=== PATIENT | female | born 1960 ===

== ENCOUNTER → 2017-10-12 | Outpatient (CLI) | payer OTHER | END | disposition home or self-care (01) | LOC: SONOGRAMA 10:44 | DX: K76.0 Fatty (change of) liver, not elsewhere classified (principal) ==

== ENCOUNTER 2018-01-31 10:18 | Outpatient (CLI) | payer OTHER | END 2018-01-31 10:25 | disposition home or self-care (01) | LOC: RAD 10:18 | DX: R91.8 Other nonspecific abnormal finding of lung field (principal) ==

== ENCOUNTER → 2021-04-28 | Outpatient (CLI) | payer OTHER | END | disposition home or self-care (01) | LOC: RAD 11:18 | DX: R07.89 Other chest pain (principal); R91.8 Other nonspecific abnormal finding of lung field ==

== ENCOUNTER 2021-12-09 14:44 | Outpatient (CLI) | payer OTHER | END 2021-12-09 14:46 | disposition home or self-care (01) | LOC: RAD 14:44 | PROVIDERS: ATTEND Physical Medicine & Rehabilitation | DX: M25.561 Pain in right knee (principal) ==

== ENCOUNTER 2022-08-30 09:11 | Outpatient (CLI) | payer OTHER | END 2022-08-30 09:33 | disposition home or self-care (01) | LOC: SONOGRAMA 09:11 | PROVIDERS: ATTEND Internal Medicine Endocrinology, Diabetes & Metabolism | DX: E04.1 Nontoxic single thyroid nodule (principal) ==

== ENCOUNTER 2023-08-03 12:25 | Outpatient (CLI) | payer OTHER | END 2023-08-03 12:26 | disposition home or self-care (01) | LOC: SONOGRAMA 12:25 | PROVIDERS: ATTEND Internal Medicine Endocrinology, Diabetes & Metabolism | DX: E04.1 Nontoxic single thyroid nodule (principal) ==

== ENCOUNTER 2024-05-08 09:09 | Outpatient (CLI) | payer OTHER | END 2024-05-08 09:20 | disposition home or self-care (01) | LOC: SONOGRAMA 09:09 | PROVIDERS: ATTEND Psychiatry & Neurology Neurology | DX: K76.0 Fatty (change of) liver, not elsewhere classified (principal) ==

== ENCOUNTER 2024-06-04 12:39 | Outpatient (CLI) | payer OTHER ==
[2024-06-04 13:17] LABS: HEMATOCRIT 41.4 % (36.0-45.00); HEMOGLOBIN 14.7 g/dL (12.0-15.00); MEAN CELL VOLUME 95.8 fL (80.00-100.00); MEAN CORPUSCULAR HEMOGLOBIN 34.1 pg (27.00-32.0); MEAN CORPUSCULAR HGB CONC 35.6 g/dl (32.0-36.0); PLATELET COUNT 228 K/uL (150-450); RED BLOOD COUNT 4.33 M/uL (4.00-6.00); RED CELL DISTRIBUTION WIDTH 13.1 % (11.5-14.5)
[2024-06-04 13:18] LABS: PH,URINE 6.5 (5.0-8.0); URINE APPEARANCE Clear; URINE BILIRRUBIN Negative (NEGATIVE); URINE BLOOD Large; URINE COLOR Yellow; URINE GLUCOSE Negative (NEGATIVE); URINE KETONE 15 (NEGATIVE); URINE LEUKOCYTE Trace; URINE NITRATE Negative; URINE PROTEIN Negative (NEGATIVE)
[2024-06-04 13:21] LABS: URINE BACTERIA 976.4 uL (0.0-1933); URINE EPITHELIAL CELLS 59.3 uL (0.0-38.8); URINE RBC 53.8 uL (0.0-20.8); URINE WBC 13.4 uL (0.0-23.2)
[2024-06-04 13:31] LABS: URINE CAST 0.45 uL (0.0-1.40)
[2024-06-04 14:01] LABS: BILIRUBIN TOTAL 1.13 mg/dL (0.3-1.2); CREATININE SERUM 0.77 mg/dL (0.55-1.02); GFR 75.71; GLOBULINA 4.3 G/DL (2.4-3.5); POTASSIUM 4.25 mEq/L (3.5-5.1); T4 TOTAL 6.77 UG/DL (4.8-13.9); TOTAL PROTEIN 8.3 gm/dL (6.4-8.2); TSH 0.781 uIU/mL (0.358-3.74)
== END 2024-06-04 12:40 | disposition home or self-care (01) ==
LOC: RAD 12:39
DX: N39.0 Urinary tract infection, site not specified (principal); J18.0 Bronchopneumonia, unspecified organism